=== PATIENT | female | born 1995 | race Asian ===

== ENCOUNTER 2017-02-08 12:07 | Emergency (ER) | payer BC ==
[~2017-02-08] VITALS: Ht 160 cm; Wt 52.1 kg
[2017-02-08 12:09] VITALS: TEMP 36.6; Ht 160 cm; Wt 52.1 kg
[2017-02-08] MEDS ORDERED: BCPILLS PO (12:24)
[2017-02-08] MEDS ORDERED: ONDANSETRON INJ 2 MG/ML 2 ML VIAL IV STA (12:28)
[2017-02-08] MEDS ORDERED: SODIUM CHLORIDE 0.9% 1000ML 1,000 ML IV STA (12:28)
[2017-02-08 12:47] VITALS: O2SAT 99
[2017-02-08 12:57] LABS: WHITE BLOOD COUNT 9.49 K/uL (4.8-10.8)
[2017-02-08 12:58] LABS: BASO % 0.4 %; BASO ABS # 0.04 K/uL (0-0.2); COMPLETE YES; EOS % 0.9 %; HEMATOCRIT 42.3 % (37-47); IG% 0.1 %; LYMPH % 17.5 %; LYMPH ABS # 1.66 K/uL (1.2-3.4); MEAN CORPUSCULAR HEMOGLOBIN 31.3 pg (25-34); MEAN PLATELET VOLUME 9.4 fL (7.4-10.4); MONO % 3.2 %; NEUT % 77.9 %; PLATELET COUNT 413 K/uL (130-400)
[2017-02-08 13:16] LABS: BUN/CREATININE RATIO 11.3 (10-20); CALCIUM 9.6 mg/dl (8.5-10.1); CREATININE 0.81 mg/dl (0.60-1.20); POTASSIUM 3.3 mmol/L (3.5-5.1)
[2017-02-08] MEDS ORDERED: POTASSIUM CHLORIDE 10 MEQ TABCR PO STA (13:20)
[2017-02-08 13:21] LABS: PREG INTERNAL NEGATIVE QC NEG CLEAR BACKGROUND; PREG INTERNAL POSITIVE QC POS CONTROL LINE
[2017-02-08] MEDS ORDERED: TOBR0.3S4 OP (13:50)
[2017-02-08 13:56] VITALS: BP 121/82; PULSE 84; O2SAT 98
--- NOTE | 2017-02-08 19:09 | EMERGENCY ROOM VISIT NOTE ---
History Report prepared by Razia: Dmitry Cain Under the Supervision of: Dr. Rodger Marcial M.D. First contact with patient: 12:18 Chief Complaint: EYE ASSESSMENT Stated Complaint: FEELING FAINT AND EYE IS SWOLLEN History of Present Illness The patient is a 21 year old female who presents to the Emergency Room with complaints of constant weakness beginning a few hours ago. She states "I just feel faint". The patient denies any loss of consciousness, cough, runny nose, SOB, black or bloody stools, chest pain, or diarrhea. She has not had anything to eat today. She states that she had a small amount of tea today. The patient also complains of nausea and an episode of vomiting occurring shortly prior to arrival. Her LNMP just ended this week. She notes that she has not slept for the past two days. The patient states that she has been taking caffeine pills approximately twice a day, as well as several expresso shots each day to stay awake so that she can study for her classes. The patient also notes that her left eye began bothering her just prior to arrival. She states that she "feels like something is stuck in there". She states that her eye appears red and is very itchy. She states that her right eye feels completely normal. The patient does not wear contacts. She states that her eye became more bothersome after she rubbed it, but does not believe she had anything on her hands. She has a history of seasonal allergies and is on Claritin D, but states that her eye feels worse than her typical allergies. Source of History: patient Onset: a few hours ago Position: other (generalized) Quality: other (weakness) Timing: constant Associated Symptoms: + nausea, + vomiting (an episode), No LOC, No SOB, No chest pain, No cough, No diarrhea, No hematochezia, No melena Note: The patient denies any runny nose. She also complains of left eye redness and itching. Review of Systems See HPI for pertinent positives & negatives. A total of 10 systems reviewed and were otherwise negative. Past Medical & Surgical Medical Problems: (1) No Known Active Medical Problems Family History No pertinent family history stated. Social History Smoking Status: Never Smoker Housing Status: lives with roommate Occupation Status: [employer] student Current/Historical Medications Scheduled Control Pills ( Control Pills), 1 TAB PO DAILY Tobramycin Sulfate (Ophth) (Tobrex Oph Thuy), 2 DROPS OP Q6H Allergies Coded Allergies: No Known Allergies (Unverified , 02/08/17) Physical Exam Vital Signs Date Time Temp Pulse Resp B/P Pulse Ox O2 Delivery O2 Flow Rate FiO2 02/08/17 13:56 84 16 121/82 98 02/08/17 13:17 75 16 137/80 02/08/17 12:49 74 02/08/17 12:47 99 Room Air 02/08/17 12:09 36.6 92 16 132/92 96 Room Air Physical Exam Constitutional: Vital signs reviewed. Eyes: Pupils are equal round reactive to light. Mild conjunctival injection to the left eye, no foreign body appreciated. Fluorescein uptake to the lateral aspect of the left cornea. No Chase sign. ENT: Pharynx is clear without erythema or exudate. Mucous membranes are moist. Neck supple without meningeal signs. Respiratory: Clear to auscultation bilaterally. Breath sounds are equal bilaterally. Cardiovascular: Regular rate and rhythm. No rubs or gallops. GI: Soft, nondistended and nontender. Bowel sounds are present. Musculoskeletal: No peripheral edema. No lower extremity tenderness. Integumentary: No cyanosis. Neurological: The patient is awake and alert. No focal deficits. Psychiatric: Normal affect. Medical Decision & Procedures Laboratory Results 02/08/17 12:36 Red Blood Count 4.60, Mean Corpuscular Volume 92.0, Mean Corpuscular Hemoglobin 31.3, Mean Corpuscular Hemoglobin Concent 34.0, Mean Platelet Volume 9.4, Neutrophils (%) (Auto) 77.9, Lymphocytes (%) (Auto) 17.5, Monocytes (%) (Auto) 3.2, Eosinophils (%) (Auto) 0.9, Basophils (%) (Auto) 0.4, Neutrophils # (Auto) 7.39, Lymphocytes # (Auto) 1.66, Monocytes # (Auto) 0.30, Eosinophils # (Auto) 0.09, Basophils # (Auto) 0.04 02/08/17 12:36 Test 02/08/17 12:36 White Blood Count 9.49 K/uL (4.8-10.8) Red Blood Count 4.60 M/uL (4.2-5.4) Hemoglobin 14.4 g/dL (12.0-16.0) Hematocrit 42.3 % (37-47) Mean Corpuscular Volume 92.0 fL (80-100) Mean Corpuscular Hemoglobin 31.3 pg (25-34) Mean Corpuscular Hemoglobin Concent 34.0 g/dl (32-36) Platelet Count 413 K/uL (130-400) Mean Platelet Volume 9.4 fL (7.4-10.4) Neutrophils (%) (Auto) 77.9 % Lymphocytes (%) (Auto) 17.5 % Monocytes (%) (Auto) 3.2 % Eosinophils (%) (Auto) 0.9 % Basophils (%) (Auto) 0.4 % Neutrophils # (Auto) 7.39 K/uL (1.4-6.5) Lymphocytes # (Auto) 1.66 K/uL (1.2-3.4) Monocytes # (Auto) 0.30 K/uL (0.11-0.59) Eosinophils # (Auto) 0.09 K/uL (0-0.5) Basophils # (Auto) 0.04 K/uL (0-0.2) RDW Standard Deviation 42.3 fL (36.4-46.3) RDW Coefficient of Variation 12.5 % (11.5-14.5) Immature Granulocyte % (Auto) 0.1 % Immature Granulocyte # (Auto) 0.01 K/uL (0.00-0.02) Anion Gap 11.0 mmol/L (3-11) Est Creatinine Clear Calc Drug Dose 90.4 ml/min Estimated GFR () 120.3 Estimated GFR (Non- 103.8 BUN/Creatinine Ratio 11.3 (10-20) Calcium Level 9.6 mg/dl (8.5-10.1) Human Chorionic Gonadotropin, Qual NEG (NEG) Laboratory results as reviewed by me. Medications Administered Medications (Trade) Dose Ordered Sig/Rachel Route Start Time Stop Time Status Last Admin Dose Admin Sodium Chloride (Nss 1000ml) 1,000 ml @ 999 mls/hr Q1H1M STAT IV 02/08/17 12:28 02/08/17 13:28 DC 02/08/17 12:49 999 MLS/HR Ondansetron HCl (Zofran Inj) 4 mg NOW STAT IV 02/08/17 12:28 02/08/17 12:31 DC 02/08/17 12:49 4 MG Potassium Chloride (Klor-Con M10) 40 meq NOW STAT PO 02/08/17 13:20 02/08/17 13:21 DC 02/08/17 13:29 40 MEQ Procedure Slit Lamp Examination Indication: left eye foreign body sensation. The left eye was prepped with topical proparacaine. Slit lamp examination was performed in the standard fashion. Cornea appeared clear. Anterior chamber within normal limits. Scleral injection not present. No discharge present. Fluorescein examination performed and revealed uptake to the lateral aspect of the left cornea. No foreign bodies noted. Negative Chase sign. The patient tolerated the procedure well without complication. ECG Indication: weakness Rate (beats per minute): 69 Rhythm: normal sinus Findings: no ectopy, other (RSR pattern in V1 and V2. No ST elevations.) ED Course 1220: The patient was evaluated in room C12. A complete history and physical exam was performed. 1228: Ordered Zofran Inj 4 mg IV, Sodium Chloride 1000 ml @ 999 mls/hr IV. 1252: I conducted the slit lamp examination. See the procedure note for details. 0145: Upon reevaluation, the patient appeared to have improvement of her symptoms. I discussed tonight's findings with her. The patient verbalized agreement of the treatment plan. She was discharged home. Medical Decision This is a 21-year-old female who presents with generalized weakness and left eye discomfort. Differential diagnosis includes exhaustion, metabolic derangement, , anemia, dehydration, corneal abrasion, foreign body. I did perform a limited focused review of portions of the patient's old chart on the electronic medical record. The patient has had no recent pertinent visits to this hospital. I did evaluate the patient as noted above. The patient is presenting with feeling weak but she has been awake for the past 48 hours and frequently taking caffeine in either a pill form or espressos. She also has not eaten anything today. This is likely why she is feeling weak. She also complains of a foreign body sensation to the left eye. She does not wear contact lenses. I did examine her with a slit lamp and she has a small corneal abrasion to the left lateral cornea. IV access was established. The patient was placed on a continuous environmental monitoring technician. I did order and personally review the patient's 12- lead EKG as described above. I did order and review the patient's blood work as noted in the electronic medical record. Her potassium is slightly low. She was given oral potassium. I did treat the patient with Zofran and normal saline IV. I did reassess the patient. She is feeling better. I did discuss the test results with her. I did recommend she go to sleep and eat regular meals. She was given a prescription for tobramycin eyedrops and discharged in good condition. Impression Primary Impression: Generalized weakness Additional Impressions: Left corneal abrasion Hypokalemia Scribe Attestation The scribe's documentation has been prepared under my direct and personally reviewed by me in its entirety. I confirm that the note above accurately reflects all work, treatment, procedures, and medical decision making performed by me. Departure Information Dispostion Home / Self-Care Prescriptions Tobramycin Sulfate (Ophth) (TOBREX OPH THUY) 0.3 % Thuy 2 DROPS OP Q6H for 5 Days, #1 BTL Prov: Rodger Marcial M.D. 02/08/17 Referrals No Doctor, Assigned (PCP) Forms HOME CARE DOCUMENTATION FORM, IMPORTANT VISIT INFORMATION, WORK / SCHOOL INSTRUCTIONS Patient Instructions ED Eye Injury Corneal Abrasion, My [facility] Additional Instructions You have been examined and treated today on an emergency basis only. This is not a substitute for, or an effort to provide, complete comprehensive medical care. It is impossible to recognize and treat all injuries or illnesses in a single emergency department visit. It is therefore important that you follow up closely with your physician or [facility]. Call as soon as possible for an appointment. Return for worsening symptoms or if you develop fever, loss of vision, chest pain, shortness of breath, or any other concerning symptoms. Problem Qualifiers Additional Impressions: Left corneal abrasion Encounter type: initial encounter Qualified Codes: S05.02XA - Injury of conjunctiva and corneal abrasion without foreign body, left eye, initial encounter
== END 2017-02-08 14:20 | disposition home or self-care (01) ==
LOC: C.EDB 12:08 → C.EDC 14:20
DX: R53.1 Weakness (principal); S05.02XA Injury of conjunctiva and corneal abrasion without foreign body, left eye, initial encounter; X58.XXXA Exposure to other specified factors, initial encounter; E87.6 Hypokalemia